=== PATIENT | male | born 1980 | race African-American/Black ===

== ENCOUNTER 2022-04-27 05:19 | Emergency (ER) | payer SELFPAY ==
[~2022-04-27] VITALS: Ht 170.1 cm; Wt 68.0 kg
[~2022-04-27 05:19] MED LIST: ALLEGRA-D 12 HO1 TER PO; ANAPROX DS550 MG PO; AUGMENTIN 875875 MG PO; Fioricet 325 MG1 TAB PO; HYDROCODONE BIT1 T11 PO; SEPTDS PO; TRIMOX500 MG PO
[2022-04-27 06:43] VITALS: BP 130/76
== END 2022-04-27 09:10 | disposition home or self-care (01) ==
LOC: ED 05:19
DX: Z20.822 Contact with and (suspected) exposure to COVID-19 (principal)

== ENCOUNTER 2022-09-12 16:52 | Emergency (ER) | payer SELFPAY ==
[~2022-09-12] VITALS: Ht 167.6 cm; Wt 59.9 kg
[2022-09-12 17:24] VITALS: BP 137/87
== END 2022-09-12 20:19 | disposition left against medical advice (07) ==
LOC: ED 16:52
DX: J02.9 Acute pharyngitis, unspecified (principal); R09.81 Nasal congestion; R05.9 Cough, unspecified; Z53.21 Procedure and treatment not carried out due to patient leaving prior to being seen by health care provider; Z91.011 Allergy to milk products; Z90.49 Acquired absence of other specified parts of digestive tract; Z98.890 Other specified postprocedural states

== ENCOUNTER 2022-11-22 15:54 | Emergency (ER) | payer SELFPAY ==
[~2022-11-22] VITALS: Ht 167.6 cm; Wt 59.0 kg
[2022-11-22 16:07] VITALS: BP 156/103
[2022-11-22] MEDS ORDERED: PROVENTIL HFA6.7 GM INH (17:42)
[2022-11-22] MEDS ORDERED: PREDNISONE20 M1 PO (17:42)
== END 2022-11-22 17:52 | disposition home or self-care (01) ==
LOC: ED 15:54
DX: J06.9 Acute upper respiratory infection, unspecified (principal); F41.9 Anxiety disorder, unspecified; F32.A Depression, unspecified; Z88.8 Allergy status to other drugs, medicaments and biological substances; Z90.49 Acquired absence of other specified parts of digestive tract; Z98.890 Other specified postprocedural states; Z20.822 Contact with and (suspected) exposure to COVID-19